=== PATIENT | male | born 1940 | race Caucasian/White ===

== ENCOUNTER → 2019-09-02 | Outpatient (CLI) | payer OTHER | END | disposition home or self-care (01) | LOC: RADPV 08:52 | PROVIDERS: ATTEND Orthopaedic Surgery | DX: I25.10 Atherosclerotic heart disease of native coronary artery without angina pectoris (principal); I25.3 Aneurysm of heart; Z95.0 Presence of cardiac pacemaker; I08.8 Other rheumatic multiple valve diseases | CPT/HCPCS: 93306 ==